=== PATIENT | male | born 1975 | race Caucasian/White ===

== ENCOUNTER 2019-07-13 15:59 | Emergency (ER) | payer MEDICAID ==
[2019-07-13 16:15] VITALS: BP 135/85; PULSE 82; RESP 18; TEMP 97.9
[2019-07-13] MEDS ORDERED: CEPHALEXIN 500MG STARTER PACK 4 CAP BTL PO STA (16:42)
--- NOTE | 2019-07-13 16:44 | ED ---
Extremity Problem HPI - General Chief complaint: Extremity Problem,Nontraumatic Stated complaint: sliver in finger Time Seen by Provider: 07/13/19 16:07 Source: patient Mode of arrival: ambulatory Limitations: no limitations - History of Present Illness Initial comments: 44-year-old male patient presents to the emergency department today for evaluation of possible liver to his finger. Patient states yesterday he was doing some woodworking when he had a large piece of wood puncture the index finger on the right hand. States that he believes all came out but he is concerned now that there may be a piece left in. States overnight he had increased swelling, pain, redness to the finger. States that he did cleanse the area apply bacitracin and a bandage. Denies any drainage from the wound. States he has difficulty with full flexion of the finger due to swelling. Denies any numbness or tingling to the hand. States his last tetanus was 5-7 ye ars ago. Patient denies any headache, neck pain, back pain, chest pain, shortness of breath, dizziness, weakness, abdominal pain, nausea, vomiting, or difficulties with bowel movements or urination. - Related Data Previous Rx's Medication Instructions Recorded Cephalexin [Keflex] 500 mg PO Q6H #28 cap 07/13/19 Allergies Allergy/AdvReac Type Severity Reaction Status Date / Time bee venom protein (honey bee) Allergy Swelling Verified 07/13/19 16:04 Review of Systems ROS Statement: Those systems with pertinent positive or pertinent negative responses have been documented in the HPI. ROS Other: All systems not noted in ROS Statement are negative. Past Medical History Past Medical History: No Reported History History of Any Multi-Drug Resistant Organisms: None Reported Past Surgical History: No Surgical Hx Reported Smoking Status: Never smoker Past Alcohol Use History: None Reported Past Drug Use History: None Reported General Exam Limitations: no limitations General appearance: alert, in no apparent distress, other (This is a well- developed, well-nourished adult male patient in no acute distress. Vital signs upon presentation are temperature 97.9F, pulse 82, respirations 18, blood pressure 135/85, pulse ox 98% on room air.) Eye exam: Present: normal appearance, PERRL, EOMI. Absent: scleral icterus, conjunctival injection, periorbital swelling ENT exam: Present: normal exam, normal oropharynx, mucous membranes moist Respiratory exam: Present: normal lung sounds bilaterally. Absent: respiratory distress, wheezes, rales, rhonchi, stridor Cardiovascular Exam: Present: regular rate, normal rhythm, normal heart sounds. Absent: systolic murmur, diastolic murmur, rubs, gallop, clicks Extremities exam: Present: tenderness (Tenderness over the right index finger), normal capillary refill, other (There is swelling to the right finger with puncture wound noted to the lateral aspect, small amount of surrounding erythema. No drainage. Skin is otherwise pink, warm, dry. Cap refills less than 3 seconds. Radial pulses 2+ and equal bilaterally.). Absent: normal inspe ction, full ROM (Limited range of motion due to swelling), pedal edema, joint swelling, calf tenderness Neurological exam: Present: alert, oriented X3, CN II-XII intact Psychiatric exam: Present: normal affect, normal mood Skin exam: Present: warm, dry, intact, normal color. Absent: rash Course Vital Signs 07/13/19 16:00 Temperature 97.9 F Pulse Rate 82 Respiratory 18 Rate Blood Pressure 135/85 O2 Sat by Pulse 98 Oximetry Medical Decision Making - Medical Decision Making 44-year-old male patient presents to the emergency department today for evaluation of swelling and redness to the right index finger after sustaining a puncture wound last evening. Patient is concerned he may have had a retained sliver from the wood. X-ray was obtained and reviewed, no evidence for obvious foreign body. I did discuss with patient it is a tiny piece of wood when necessary see on the x-ray. We did discuss that this would eventually work itself out. We'll start antibiotics for possible infection. He is instructed to follow-up with orthopedic specialty for further evaluation. Return parameters were discussed in detail. He verbalizes understanding and agrees with this plan Disposition Clinical Impression: Puncture wound of finger Disposition: HOME SELF-CARE Condition: Good Instructions (If sedation given, give patient instructions): Soft Tissue Foreign Body (ED), Puncture Wound (ED) Additional Instructions: Complete antibiotic prescription in full. Follow-up with online marketing specialist for further evaluation if symptoms persist. Follow-up with your primary care physician for recheck in 1-2 days. Return to the emergency department immediately for any new, worsening, or concerning symptoms. Prescriptions: Cephalexin [Keflex] 500 mg PO Q6H #28 cap Is patient prescribed a controlled substance at d/c from ED?: No Referrals: Petr Rizo DO [Doctor of Osteopathic Medicine] - 1-2 days Time of Disposition: 16:43
--- NOTE | 2019-07-13 16:50 | XR ---
Right hand HISTORY: Foreign body 3 views of the right hand Bone mineralization, joint spaces and alignment are maintained. Soft tissue swelling is noted the dis charan aspect of the second digit. No radiopaque foreign body is evident. IMPRESSION: No radiopaque foreign body.
[2019-07-13] MEDS ORDERED: DIPH,PERTUS(ACELL)TETVAC-LF 0.5 ML VIAL IM ONE (17:00)
== END 2019-07-13 17:42 | disposition home or self-care (01) ==
LOC: EC 15:59
DX: S61.230A Puncture wound without foreign body of right index finger without damage to nail, initial encounter (principal); Z23 Encounter for immunization; Z91.030 Bee allergy status; W45.8XXA Other foreign body or object entering through skin, initial encounter; Y93.89 Activity, other specified
CPT/HCPCS: 90471; 90715; 99283

== ENCOUNTER → 2023-11-30 | Outpatient (CLI) | payer MEDICAID ==
[2023-11-30 09:19] VITALS: BP 137/93; PULSE 77; RESP 16; TEMP 97.8
--- NOTE | 2023-11-30 15:30 | P.PAINPG ---
PQRS Measure Charge Sheet Comment: HISTORY OF PRESENT ILLNESS: A 48 yr old male as a referral from Dr Dickens presents today w severe and chronic LBP > 3 mo secondary to radiculopathy, spondylosis and facet arthropathy without myelopathy for evaluation. Pt states pain level is provoked at 9 /10 in intensity, constant, localized in the lumbar, predominantly axial, throbbing in character w occasional shooting pain towards the RLE. Pain is provoked by over activity. Pain is alleviated by chiropractic treatments semi monthly since Sep 2023 which he is currently in, ice, medications (Ibu, Allopurinol), topical Voltaren, repositioning and rest . PMH: OA , Gout PSH: Denies SH: Never smoker, Occ ETOH use, No illicit drug use FH: Non contributory All: See list Meds: See list REVIEW OF ORGAN SYSTEMS: CONSTITUTIONAL: No fevers or chills. No recent weight loss. NEUROLOGICAL: + numbness and tingling along the distal extremities. No seizure disorders or headaches. MUSCULOSKELETAL: + pain PSYCHIATRIC: Denies current depression or suicidal thoughts. Physical Examinations : Constitutional : Cooperative , not in acute distress . Neurologic : Cranial nerve II to XII intact. No focal neurological deficits. Psychiatric : alert & oriented x 3. Matching mood & appropriate affect. Judgment & insight intact. Musculoskeletal : Cervical Spine Motor strength in the deltoid and biceps: Normal right side. Normal Left side Motor strength biceps and the wrist extensors: Normal right side . Normal left side Motor strength in the triceps muscle: Normal right side. Normal left side Deep tendon reflexes: Normal at the biceps. Normal at Brachioradialis. Normal at triceps Vertebral body tenderness to deep palpation over Cervical facet loading test: positive bilaterally Spurling test: positive bilaterally Neck distraction test: positive bilaterally Pamela sign: positive bilaterally Lumbar spine Motor strength lower extremities ,thigh and legs 5/5 Right side , 5/5 Left side Deep tendon reflexes : Normal Knee Jerk. Normal Ankle Jerk Vertebral body tenderness over L5 Perez Test positive R L5-S1 Lumbar facet Loading Test: positive Right / positive Left Range of motion of the lumbar spine Flexion 30 degrees, extension 10 degrees Straight Leg Raise test: Left/ Right positive at degrees Marija test: positive right / positive left. Severe tenderness over the Sacroiliac joint on the Right / Left sides Gaenslen test: positive bilaterally Seated flexion test: positive bilaterally. Sacral spine : Severe tenderness over the Sacroiliac joint: right side / left side Range of motion: Flexion of the lumbar spine <60 degrees Range of motion: Extension of the lumbar spine <20 degrees Gaenslen's Test positive Marija test: positive right side / left side Thigh Thrust Test Sacral Thrust Test Imaging: MRI non contrast lumbar spine from 11/20/23 reviewed Assessment/ Plan : L5-S1 7mm disc bulge Recommendation of RO R paramedian RO L5-S1 #1. Risks, benefits of procedure discussed and patient verbalized understanding. Admits to anti- coagulant use or medical history of diabetes. Protocol for discontinuation/ continuation of medic ations tha procedure discussed. All questions answered. I have spent greater than 30 minutes on patient care today. Dr Pressley was available by phone for the evaluation of this patient. The time was used to review the medical records including relevant urine studies and Prescription history (MAPs), review of the available imaging, evaluation and examination of the patient, coordination of care with the medical staff and if applicable referring physicians, as well as creation of the medical record PQRS Narrative: Smoking Status Never smoker Home Medications: Ambulatory Orders Cephalexin [Keflex] 500 mg PO Q6H #28 cap 07/13/19 Cephalexin [Keflex] 500 mg PO Q8HR 7 Days #21 cap 04/02/22 Glucosamine/MSM/Hyaluron Acid [Hfkfouyjorm-OHK-Niuiqmersu Tab] See Rx Instructions .ROUTE .COMPLEX 11/30/23 allopurinoL 100 mg PO BID 11/30/23 Controlled Substance Measures - Controlled Substance Measures Is patient prescribed a controlled substance at discharge?: No
== END ==
LOC: PNWHC3 08:46
PROVIDERS: ATTEND Specialist
DX: G89.4 Chronic pain syndrome
CPT/HCPCS: 99211

== ENCOUNTER 2023-12-06 11:50 | Day surgery (SDC) | payer MEDICAID ==
[2023-12-01 12:25] VITALS: BMI 30.3
[~2023-12-06 11:50] MED LIST: LACTATED RINGERS 1,000 ML IV SCH
[2023-12-06 12:04] VITALS: TEMP 97
[2023-12-06] MEDS ORDERED: methylPREDNISolone ACETATE 80 MG/ML 1 ML VIAL ONE (12:16)
[2023-12-06] MEDS ORDERED: IOPAMIDOL M200 10 ML VIAL ONE (12:16)
--- NOTE | 2023-12-06 12:26 | P.PCN ---
Date of Procedure: 12/06/23 Description of Procedure: Diagnosis: Lumbar radiculopathy, and lumbar spondylosis without myelopathy Procedure: Right side L5-S1 Inter-Laminar Lumbar Epidural Steroid Injection under biplanar fluoroscopy #1 Surgeon: Anh Singh Anesthesia: Local: 1% Lidocaine, IV sedation : None. Complications: None Estimated blood loss: None Specimens removed: none. Fluoroscopic image: Saved to patient EMR. Indications for Procedure: The patient has been suffering from lower back pain and leg pain. Inadequate pain control with pharmacologic regimen. Came here for lumbar epidural steroid injection for better pain control. Procedure and Findings: The patient was seen and examined in the holding area. The written informed consent was obtained after explaining the risks, benefits, and alternatives of the procedure to the patient. The patient was brought to the procedure room and was placed in the prone position on the operating room table. A pillow was placed under the abdomen to reduce lumbar lordosis. The anesthesia was started as mentioned above and monitoring was done with noninvasive blood pressure cuff, EKG and pulse oximetry. The skin preparation was done with ChloraPrep and draping was done in usual sterile fashion. Sterile technique was observed throughout the procedure. Under fluoroscopic guidance, the L5-S1 inter-laminar space was identified. 3 ml of 1% Lidocaine was injected with a 25 gauge needle to achieve adequate local anesthesia of the skin and subcutaneous tissue. A 20 gauge, 3.5 inch Tuohy type epidural needle was placed and advanced up to the epidural space using loss of resistance technique and fluoroscopic guidance. No paresthesia was noted. A negative aspiration was confirmed and then 2ml Isovue was injected. A good dye spread was seen in the epidural space and it was negative for any intrathecal, intraneural or intravascular spread. A total of 10 ml solution containing Depo-Medrol 80 Mg mixed with 8 mL of preservative-free Normal Saline was injected slowly with intermittent aspiration. The needle was removed intact, area was cleaned and bandage was applied. Disposition : The patient tolerated the procedure very well. The patient was transferred to the recovery room and remained stable until discharged home. The patient was given detailed discharge instructions for infection, bleeding, headache , leg weekness, and increased pain at the injection site, and was advised to seek immediate medical attention should significant side effects develop. The patient will be followed up with our [facility] within 4 weeks for follow-up visit.
[2023-12-06] MEDS: IV FLUID CONTINUATION 800 ML IV ONE (12:30)
[2023-12-06 12:34] VITALS: RESP 16
[2023-12-06 13:12] VITALS: BP 150/97; PULSE 78
--- NOTE | 2023-12-06 17:04 | FL ---
EXAMINATION TYPE: FL guided pain mgmt statistic DATE OF EXAM: 12/06/2023 12:33 PM COMPARISON: Pre Operative Images if available both CT/MRI or plain film CLINICAL INDICATION: Male, 48 years old with history of M47.816 LUMBAR SPONDYLOSIS,M54.16; TECHNIQUE: FL guided pain mgmt statistic, multiple fluoroscopic images provided for procedure. Total fluoroscopy time: 7 seconds Total submitted images to PACS: 2 DAP: [id number] mGym2 Gycm2 uGym2 cGycm2 or equivalent. FINDINGS: Fluoroscopic images during injection for pain management demonstrate multilevel degeneration changes throughout the spine. No evidence for fracture. No acute process identified. IMPRESSION: 1. No evidence for intraoperative complication. 2. Please see the operative/procedural note for further details. 3. [facility], , 12/06/2023 5:02 PM
== END 2023-12-06 13:12 | disposition home or self-care (01) ==
LOC: ORPAIN 11:50
DX: M47.26 Other spondylosis with radiculopathy, lumbar region (principal); M10.9 Gout, unspecified; Z79.899 Other long term (current) drug therapy; Z91.030 Bee allergy status
CPT/HCPCS: 62323

== ENCOUNTER → 2023-12-15 | Outpatient (CLI) | payer MEDICAID ==
[2023-12-15 09:31] VITALS: BP 145/91; PULSE 70; RESP 16; TEMP 97.1
--- NOTE | 2023-12-15 14:42 | P.PAINPG ---
PQRS Measure Charge Sheet Comment: HISTORY OF PRESENT ILLNESS: A 48 yr old male w at side presents today w severe and chronic LBP > 3 mo secondary to radiculopathy, spondylosis and facet arthropathy without myelopathy for evaluation s/p RO R paramedian RO L5-S1 #1. Pt states he experienced 0% pain relief s/p procedure. Pt states pain level is provoked at 7 /10 in intensity, constant, localized in the R lumbar, predominantly axial, throbbing in character w occasional shooting pain towards the RLE. Pain is provoked by over activity. Pain is alleviated by chiropractic treatments semi monthly since Sep 2023 which he is currently in, ice, medications, topical, repositioning and rest . Interventional procedures include RO R paramedian RO L5-S1 x1 Medications include Allopurinol, Ibu, Voltaren REVIEW OF ORGAN SYSTEMS: CONSTITUTIONAL: No fevers or chills. No recent weight loss. NEUROLOGICAL: + numbness and tingling along the distal extremities. No seizure disorders or headaches. MUSCULOSKELETAL: + pain PSYCHIATRIC: Denies current depression or suicidal thoughts. Physical Examinations : Constitutional : Cooperative , not in acute distress . Neurologic : Cranial nerve II to XII intact. No focal neurological deficits. Psychiatric : alert & oriented x 3. Matching mood & appropriate affect. Judgment & insight intact. Musculoskeletal : Cervical Spine Motor strength in the deltoid and biceps: Normal right side. Normal Left side Motor strength biceps and the wrist extensors: Normal right side . Normal left side Motor strength in the triceps muscle: Normal right side. Normal left side Deep tendon reflexes: Normal at the biceps. Normal at Brachioradialis. Normal at triceps Vertebral body tenderness to deep palpation over Cervical facet loading test: positive bilaterally Spurling test: positive bilaterally Neck distraction test: positive bilaterally Pamela sign: positive bilaterally Lumbar spine Motor strength lower extremities ,thigh and legs 5/5 Right side , 5/5 Left side Deep tendon reflexes : Normal Knee Jerk. Normal Ankle Jerk Vertebral body tenderness over L4 Perez Test positive R L4-L5 Lumbar facet Loading Test: positive Right / positive Left Range of motion of the lumbar spine Flexion 30 degrees, extension 10 degrees Straight Leg Raise test: Left/ Right positive at degrees Marija test: positive right / positive left. Severe tenderness over the Sacroiliac joint on the Right / Left sides Gaenslen test: positive bilaterally Seated flexion test: positive bilaterally. Sacral spine : Severe tenderness over the Sacroiliac joint: right side / left side Range of motion: Flexion of the lumbar spine <60 degrees Range of motion: Extension of the lumbar spine <20 degrees Gaenslen's Test positive Marija test: positive right side / left side Thigh Thrust Test Sacral Thrust Test Imaging: MRI non contrast lumbar spine from 11/20/23 reviewed Assessment/ Plan : L5-S1 7mm disc bulge Recommendation of R TFESI L4-L5 #2. Risks, benefits of procedure discussed and patient verbalized understanding. Admits to anti- coagulant use or medical history of diabetes. Protocol for discontinuation/ continuation of medications tha procedure discussed. All questions answered. I have spent greater than 30 minutes on patient care today. Dr Pressley was available by phone for the evaluation of this patient. The time was used to review the medical records including relevant urine studies and Prescription history (MAPs), review of the available imaging, evaluation and examination of the patient, coordination of care with the medical staff and if applicable referring physicians, as well as creation of the medical record PQRS Narrative: Smoking Status Never smoker Hx Alcohol Use (MH) Yes Home Medications: Ambulatory Orders allopurinoL 100 mg PO DAILY 11/30/23 diazePAM [Valium] 5 mg PO DAILY PRN 1 Days #2 tab 12/15/23 Controlled Substance Measures - Controlled Substance Measures Is patient prescribed a controlled substance at discharge?: Yes When asked, does pt state using other controlled substances?: Yes If prescribed controlled substance>3 days was MAPS reviewed?: Prescribed <3 Days
== END | disposition home or self-care (01) ==
LOC: PNWHC3 08:23
PROVIDERS: ATTEND Specialist
DX: M47.816 Spondylosis without myelopathy or radiculopathy, lumbar region (principal); M51.27 Other intervertebral disc displacement, lumbosacral region; Z91.030 Bee allergy status
CPT/HCPCS: 99211

== ENCOUNTER 2023-12-20 10:17 | Day surgery (SDC) | payer MEDICAID ==
[2023-12-16 12:11] VITALS: BMI 29.7
[2023-12-20] MEDS: IV FLUID CONTINUATION 1,000 ML IV ONE (10:24)
[2023-12-20 10:34] VITALS: TEMP 97.9
[2023-12-20 10:38] LABS: Glucose,Whole Blood 100 mg/dL (70-110)
[2023-12-20] MEDS ORDERED: IOPAMIDOL M200 10 ML VIAL ONE (11:50)
[2023-12-20] MEDS ORDERED: methylPREDNISolone ACETATE 80 MG/ML 1 ML VIAL ONE (11:50)
--- NOTE | 2023-12-20 11:57 | P.PCN ---
Date of Procedure: 12/20/23 Procedure(s) Performed: PREOPERATIVE DIAGNOSIS: 1-Lumbar radiculopathy . 2-lumbar degenerative disc disease. POSTOPERATIVE DIAGNOSIS: 1-lumbar radiculopathy. 2-lumbar degenerative disc disease. PROCEDURE 1. Transforaminal epidural steroid injection under fluoroscopic guidance at right L4-5 level. (Fluoroscopy images stored on file in the radiology Department ) 2. Lumbar epidurogram . ANESTHESIA: Local with 1% lidocaine 3 ml. EBL: Minimal PROCEDURE INDICATION: The patient with low back pain and radiculopathy symptoms unresponsive to conservative treatment. PROCEDURE DESCRIPTION / TECHNIQUE: The patient was seen and identified in the preoperative area. Risks, benefits, complications, and alternatives were discussed with the patient. The patient agreed to proceed with the procedure and signed the consent. IV was started, and vital signs were stable. Patient was taken to the OR and time out was completed. The patient was placed in the prone position on procedure table and a pillow was placed under the abdomen to reduce lumbar lordosis. The lumbosacral area was prepped and draped in the usual sterile fashion. Critical pause was taken. Vital signs were closely monitored during the procedure. Using oblique fluoroscopy, the chin of the `[place] dog at right L4-5 level was identified, and the skin and deeper tissues just below was localized with 1% lidocaine. Subsequently, a 22-gauge 3.5-inch spinal needle was advanced under a tunneled view fluoroscopic guidance just underneath the chin of the `[place] dog at the right L4-5 Under lateral fluoroscopy, the needle was then advanced to the posterior border of the interforaminal space. After negative aspiration of CSF and blood and with no paresthesias, 1 mL Isovue 200 contrast dye was injected excellent epidurogram and outlining of the nerve root Subsequently, 3 mL of block solution containing 80 mg Depo-Medrol and 2 mL of 0.9% normal saline PF was injected. Needle was removed . At the end of the procedure, skin was cleansed, and bandages were applied. COMPLICATIONS:none DISPOSITION / PLANS: The patient was placed in a supine position and transferred to the recovery area in a stable condition for observation. There was no evidence of lower extremity motor or sensory deficit after the procedure. Trinity ent was discharged from the recovery room after meeting discharge criteria. Home discharge instructions were given to the patient by the staff. The patient was reexamined prior to discharge.
--- NOTE | 2023-12-20 12:19 | FL ---
EXAMINATION TYPE: FL guided pain mgmt statistic DATE OF EXAM: 12/20/2023 HISTORY: Fluoroscopy time Total dose area product (DAP) in uGy*m?, mGy*cm? (or similar): 0.93204 IMPRESSION: 1. Fluoroscopy time. [facility], , 12/20/2023 12:16 PM
[2023-12-20 12:27] VITALS: BP 133/88; PULSE 74; RESP 20
== END 2023-12-20 12:29 | disposition home or self-care (01) ==
LOC: ORPAIN 10:17
PROVIDERS: ATTEND Specialist
CPT/HCPCS: 64483

== ENCOUNTER → 2024-01-05 | Outpatient (CLI) | payer MEDICAID ==
[2024-01-05 09:27] VITALS: BP 136/84; PULSE 71; RESP 16
--- NOTE | 2024-01-09 07:38 | P.PAINPG ---
PQRS Measure Charge Sheet Comment: HISTORY OF PRESENT ILLNESS: A 48 yr old male w at side presents today w severe and chronic LBP > 3 mo secondary to radiculopathy, spondylosis and facet arthropathy without myelopathy for evaluation s/p RO R TFESI L4-L5 #2. Pt states he experienced >50 % pain relief x 2 wks s/p procedure. Pt states pain level is provoked at 7 /10 in intensity, constant, localized in the R lumbar, predominantly axial, throbbing in character w occasional shooting pain towards the RLE. Pain is provoked by over activity. Pain is alleviated by chiropractic treatments semi monthly since Sep 2023 which he is currently in, ice, medications, topical, repositioning and rest . Interventional procedures include RO R paramedian RO L5-S1 x1, R TFESI L4-L5 x1 Medications include Allopurinol, Ibu, Aleve, Voltaren REVIEW OF ORGAN SYSTEMS: CONSTITUTIONAL: No fevers or chills. No recent weight loss. NEUROLOGICAL: + numbness and tingling along the distal extremities. No seizure disorders or headaches. MUSCULOSKELETAL: + pain PSYCHIATRIC: Denies current depression or suicidal thoughts. Physical Examinations : Constitutional : Cooperative , not in acute distress . Neurologic : Cranial nerve II to XII intact. No focal neurological deficits. Psychiatric : alert & oriented x 3. Matching mood & appropriate affect. Judgment & insight intact. Musculoskeletal : Cervical Spine Motor strength in the deltoid and biceps: Normal right side. Normal Left side Motor strength biceps and the wrist extensors: Normal right side . Normal left side Motor strength in the triceps muscle: Normal right side. Normal left side Deep tendon reflexes: Normal at the biceps. Normal at Brachioradialis. Normal at triceps Vertebral body tenderness to deep palpation over Cervical facet loading test: positive bilaterally Spurling test: positive bilaterally Neck distraction test: positive bilaterally Pamela sign: positive bilaterally Lumbar spine Motor strength lower extremities ,thigh and legs 5/5 Right side , 5/5 Left side Deep tendon reflexes : Normal Knee Jerk. Normal Ankle Jerk Vertebral body tenderness over L4 Perez Test positive R L4-L5 Lumbar facet Loading Test: positive Right / positive Left Range of motion of the lumbar spine Flexion 30 degrees, extension 10 degrees Straight Leg Raise test: Left/ Right positive at degrees Marija test: positive right / positive left. Severe tenderness over the Sacroiliac joint on the Right / Left sides Gaenslen test: positive bilaterally Seated flexion test: positive bilaterally. Sacral spine : Severe tenderness over the Sacroiliac joint: right side / left side Range of motion: Flexion of the lumbar spine <60 degrees Range of motion: Extension of the lumbar spine <20 degrees Gaenslen's Test positive Marija test: positive right side / left side Thigh Thrust Test Sacral Thrust Test Imaging: MRI non contrast lumbar spine from 11/20/23 reviewed Assessment/ Plan : L5-S1 7mm disc bulge Recommendation of R TFESI L4-L5 #2. Risks, benefits of procedure discussed and patient verbalized understanding. Admits to anti- coagulant use or medical history of diabetes. Protocol for discontinuation/ continuation of medications tha procedure discussed. All questions answered. I have spent greater than 30 minutes on patient care today. Dr Pressley was available by phone for the evaluation of this patient. The time was used to review the medical records including relevant urine studies and Prescription history (MAPs), review of the available imaging, evaluation and examination of the patient, coordination of care with the medical staff and if applicable referring physicians, as well as creation of the medical record - Pain Location Lower Back Non-Pharmacological Interventions: Chiropractic Treatment, Ice Pharmacological Interventions: Epidural, Medication PQRS Narrative: Smoking Status Never smoker Hx Alcohol Use (MH) Yes Home Medications: Ambulatory Orders allopurinoL [Allopurinol] 100 mg PO DAILY 12/15/23 diazePAM [Valium] 5 mg PO DAILY PRN 1 Days #2 tab 12/15/23 Famotidine [Pepcid] 20 mg PO DAILY 12/16/23 predniSONE [Deltasone] See Taper PO DIRECTED 12/16/23 Controlled Substance Measures - Controlled Substance Measures Is patient prescribed a controlled substance at discharge?: Yes When asked, does pt state using other controlled substances?: No If prescribed controlled substance>3 days was MAPS reviewed?: Prescribed <3 Days
== END ==
LOC: PNWHC3 08:59
PROVIDERS: ATTEND Specialist
DX: M51.379 Other intervertebral disc degeneration, lumbosacral region without mention of lumbar back pain or lower extremity pain (principal); M47.817 Spondylosis without myelopathy or radiculopathy, lumbosacral region; Z91.030 Bee allergy status
CPT/HCPCS: 99211

== ENCOUNTER 2024-01-10 06:16 | Day surgery (SDC) | payer MEDICAID ==
[2024-01-10 06:36] VITALS: TEMP 98.3
[2024-01-10] MEDS ORDERED: ROPIVACAINE 5MG/ML 20ML VIAL ONE (07:02)
[2024-01-10] MEDS ORDERED: DEXAMETHASONE SOD PHOSPHATE 10 MG/ML 1 ML VIAL ONE (07:02)
[2024-01-10] MEDS ORDERED: IOPAMIDOL M300 15ML VIAL ONE (07:02)
--- NOTE | 2024-01-10 07:33 | P.PCN ---
Description of Procedure: PREOPERATIVE DIAGNOSIS: 1-Lumbar radiculopathy . 2-lumbar degenerative disc disease. 3-lumbar spondylosis with lumbar facet arthropathy without myelopathy POSTOPERATIVE DIAGNOSIS: 1-lumbar radiculopathy. 2-lumbar degenerative disc disease. 3-lumbar spondylosis with facet arthropathy without myelopathy PROCEDURE 1. Transforaminal epidural steroid injection under fluoroscopic guidance at RIGHT L4-5 level. (Fluoroscopy images stored on file in the radiology Department ) 2. Lumbar epidurogram . ANESTHESIA: Local with 1% lidocaine 5 ml. subcutaneously. Continuous pulse ox, EKG, blood pressure and verbal communication was maintained with the patient. EBL: Minimal PROCEDURE INDICATION: The patient with low back pain and radiculopathy symptoms unresponsive to conservative treatment. The patient was seen and identified in the preoperative area. Risks, benefits, complications, and alternatives were discussed with the patient. The patient agreed to proceed with the procedure and signed the consent. IV was started, and vital signs were stable. PROCEDURE DESCRIPTION / TECHNIQUE: After getting consent, patient was taken to the OR and time out was completed. The patient was placed in the prone position on procedure table and a pillow was placed under the abdomen to reduce lumbar lordosis. The lumbosacral area was prepped and draped in the usual sterile fashion. Critical pause was taken. After injecting 5 mL of plain 1% lidocaine subcutaneously, under oblique view of the fluoroscope, a 22-gauge spinal needle was introduced under the tunnel view of the fluoroscope on the RIGHT side and the needle was advanced so that the tip of the needle was at the posterior inferior quadrant of the intervertebral foramen at the lateral view of the fluoroscope and in the lateral third of the facet column in the AP view of the fluoroscope. Negative CSF, negative blood, negative paresthesia. After needle position confirmation by AP and cross table lateral view, 3 mL of Isovue-M 200 contrast was injected under continuous fluoroscope. No contrast was noted in the intrathecal or intravascular space. The epidurogram was noted. Again after repeated negative aspiration 2.5 mL solution was injected which consists 0.5 mL of normal saline mixed with 2 mL of 20 mg dexamethasone. Needle was removed . At the end of the procedure, skin was cleansed, and bandages were applied. DISPOSITION / PLANS: No complication. The patient tolerated the procedure well. The patient was placed in a supine position and transferred to the recovery area in a stable condition for observation. There was no evidence of lower extremity motor or sensory deficit after the procedure. Patient was discharged from the recovery room after meeting discharge criteria. Home discharge instructions were given to the patient by the staff. The patient was reexamined prior to discharge.
--- NOTE | 2024-01-10 07:36 | FL ---
EXAMINATION TYPE: FL guided pain mgmt statistic DATE OF EXAM: 01/10/2024 HISTORY: Fluoroscopy time Fluoroscopy provided to the physician. IMPRESSION: 1. Fluoroscopy time. [facility], , 01/10/2024 7:33 AM
[2024-01-10 07:50] VITALS: BP 130/86; PULSE 72; RESP 18
== END 2024-01-10 07:54 | disposition home or self-care (01) ==
LOC: ORPAIN 06:16
PROVIDERS: ATTEND Pain Medicine Interventional Pain Medicine
DX: M47.26 Other spondylosis with radiculopathy, lumbar region (principal)
CPT/HCPCS: 64483

== ENCOUNTER → 2024-01-23 | Outpatient (CLI) | payer MEDICAID ==
[2024-01-23 08:31] VITALS: BP 139/97; PULSE 82; RESP 16
--- NOTE | 2024-01-23 15:05 | P.PAINPG ---
PQRS Measure Charge Sheet Comment: HISTORY OF PRESENT ILLNESS: A 48 yr old male w at side presents today w severe and chronic LBP > 3 mo secondary to radiculopathy, spondylosis and facet arthropathy without myelopathy for evaluation s/p RO R TFESI L4-L5 #2. Pt states he experienced >50 % pain relief x 2 wks s/p procedure. Pt states pain level is provoked at 5 /10 in intensity, constant, localized in the R lumbar, predominantly axial, throbbing in character w occasional shooting pain towards the RLE. Pain is provoked by over activity. Pain is alleviated by chiropractic treatments semi monthly since Sep 2023 which he is currently in, ice, medications, topical, repositioning and rest . Interventional procedures include RO R paramedian RO L5-S1 x1, R TFESI L4-L5 x3 Medications include Allopurinol, Ibu, Aleve, Voltaren REVIEW OF ORGAN SYSTEMS: CONSTITUTIONAL: No fevers or chills. No recent weight loss. NEUROLOGICAL: + numbness and tingling along the distal extremities. No seizure disorders or headaches. MUSCULOSKELETAL: + pain PSYCHIATRIC: Denies current depression or suicidal thoughts. Physical Examinations : Constitutional : Cooperative , not in acute distress . Neurologic : Cranial nerve II to XII intact. No focal neurological deficits. Psychiatric : alert & oriented x 3. Matching mood & appropriate affect. Judgment & insight intact. Musculoskeletal : Cervical Spine Motor strength in the deltoid and biceps: Normal right side. Normal Left side Motor strength biceps and the wrist extensors: Normal right side . Normal left side Motor strength in the triceps muscle: Normal right side. Normal left side Deep tendon reflexes: Normal at the biceps. Normal at Brachioradialis. Normal at triceps Vertebral body tenderness to deep palpation over Cervical facet loading test: positive bilaterally Spurling test: positive bilaterally Neck distraction test: positive bilaterally Pamela sign: positive bilaterally Lumbar spine Motor strength lower extremities ,thigh and legs 5/5 Right side , 5/5 Left side Deep tendon reflexes : Normal Knee Jerk. Normal Ankle Jerk Vertebral body tenderness over L4 Perez Test positive R L4-L5 Lumbar facet Loading Test: positive Right / positive Left Range of motion of the lumbar spine Flexion 30 degrees, extension 10 degrees Straight Leg Raise test: Left/ Right positive at degrees Marija test: positive right / positive left. Severe tenderness over the Sacroiliac joint on the Right / Left sides Gaenslen test: positive bilaterally Seated flexion test: positive bilaterally. Sacral spine : Severe tenderness over the Sacroiliac joint: right side / left side Range of motion: Flexion of the lumbar spine <60 degrees Range of motion: Extension of the lumbar spine <20 degrees Gaenslen's Test positive Marija test: positive right side / left side Thigh Thrust Test Sacral Thrust Test Imaging: MRI non contrast lumbar spine from 11/20/23 reviewed Assessment/ Plan : L5-S1 7mm disc bulge Will start PT today and may RTC on an as needed basis. All questions answered. I have spent greater than 30 minutes on patient care today. Dr Pressley was available by phone for the evaluation of this patient. The time was used to review the medical records including relevant urine studies and Prescription history (MAPs), review of the available imaging, evaluation and examination of the patient, coordination of care with the medical staff and if applicable referring physicians, as well as creation of the medical record PQRS Narrative: Smoking Status Never smoker Hx Alcohol Use (MH) Yes Home Medications: Ambulatory Orders allopurinoL [Allopurinol] 100 mg PO DAILY 12/15/23 Famotidine [Pepcid] 20 mg PO DAILY 12/16/23 predniSONE [Deltasone] See Taper PO DIRECTED 12/16/23 diazePAM [Valium] 5 mg PO DAILY PRN 1 Days #2 tab 01/05/24 Controlled Substance Measures - Controlled Substance Measures Is patient prescribed a controlled substance at discharge?: No
== END ==
LOC: PNWHC3 08:11
PROVIDERS: ATTEND Specialist
DX: M51.379 Other intervertebral disc degeneration, lumbosacral region without mention of lumbar back pain or lower extremity pain (principal); M47.817 Spondylosis without myelopathy or radiculopathy, lumbosacral region; Z91.030 Bee allergy status
CPT/HCPCS: 99211